=== PATIENT | male | born 1935 | race Caucasian/White ===

== ENCOUNTER 2017-04-08 23:55 | Emergency (ER) | payer MEDICARE ==
[~2017-04-08] VITALS: Ht 172.7 cm; Wt 70.9 kg
[2017-04-09] MEDS ORDERED: ATORVASTATIN CA10 MG PO (00:05)
[2017-04-09] MEDS ORDERED: CALCIUM 500 +1 EAC5 PO (00:05)
[2017-04-09] MEDS ORDERED: COREG6.25 MG PO (00:06)
[2017-04-09] MEDS ORDERED: ELIQUIS2.5 MG PO (00:06)
[2017-04-09] MEDS ORDERED: ESOMEPRAZOLE MA40 MG PO (00:07)
[2017-04-09] MEDS ORDERED: VICODIN ES 7.51 EAC1 PO (00:07)
[2017-04-09] MEDS ORDERED: SERTRALINE HCL25 M1 PO (00:08)
[2017-04-09] MEDS ORDERED: NYSTATIN100000 UN1 PO (00:08)
[2017-04-09] MEDS ORDERED: ST JOSEPH ASPIR81 M1 PO (00:09)
[2017-04-09] MEDS ORDERED: POTASSIUM CHLO10 MEQ PO (00:10)
[2017-04-09] MEDS ORDERED: JEVITY 1.5 CAL237 ML GT (00:14)
== END 2017-04-09 03:37 ==
LOC: SED 23:55
DX: K94.23 Gastrostomy malfunction (principal); Z79.899 Other long term (current) drug therapy; Z88.0 Allergy status to penicillin
CPT/HCPCS: 99283